=== PATIENT | female | born 1975 | race Caucasian/White ===

== ENCOUNTER → 2017-12-30 | Outpatient (CLI) | payer OTHER ==
--- NOTE | 2017-12-30 10:34 | MM ---
Reason for exam: screening (asymptomatic). Baseline mammogram. History: Took hormonal contraceptives beginning at age 32. Took progesterone for 4 months beginning at age 32. Physical Findings: Nurse did not find any significant physical abnormalities on exam. MG Screening Mammo w CAD Bilateral CC and MLO view(s) were taken. There are scattered fibroglandular densities. There is no discrete abnormality. A couple posterior upper outer quadrant intramammary lymph nodes on the right. These results were verbally communicated with the patient and result sheet given to the patient on 12/30/17. ASSESSMENT: Negative, BI-RAD 1 RECOMMENDATION: Routine screening mammogram of both breasts in 1 year.
== END | disposition home or self-care (01) ==
LOC: RADMAMWWP 09:18
PROVIDERS: ATTEND Family Medicine
DX: Z12.31 Encounter for screening mammogram for malignant neoplasm of breast (principal)
CPT/HCPCS: 77067

== ENCOUNTER → 2018-10-08 | Outpatient (CLI) | payer OTHER ==
--- NOTE | 2018-10-09 07:24 | US ---
EXAMINATION TYPE: US pelvic complete DATE OF EXAM: 10/08/2018 COMPARISON: NONE CLINICAL HISTORY: N83.209 Cyst of ovary, D25.9 Uterine leiomyoma per order. Patient states having his tory of fibroid and ovarian cyst x years ago. Slightly irregular periods. TECHNIQUE: Transabdominal (TA). Transabdominal sonographic images of the pelvis were acquired. Date of LMP: 09/12/2018, EXAM MEASUREMENTS: Uterus: 12.1 x 5.3 x 3.9 cm Endometrial Stripe: 1.0 cm Right Ovary: 4.4 x 4.6 x 3.0 cm Left Ovary: 3.1 x 1.8 x 1.4 cm 1. Uterus: Anteverted Heterogenous. Two lesions seen. 1- possible fibroid in right uterus with pe ripheral hyperechoic ring= 3.1 x 2.9 x 2.9 cm. 2- Pedunculated fibroid extending off mid/left fundal region= 11.5 x 10.8 x 9.0 cm 2. Endometrium: wnl 3. Right Ovary: simple cystic appearing lesion seen = 4.0 cm 4. Left Ovary: wnl 5. Bilateral Adnexa: wnl 6. Posterior cul-de-sac: no free fluid Transabdominal pelvic ultrasound shows heterogeneous anteverted uterus. Endometrium measures up to 10 mm which is within normal limits for secretory phase of menstrual cycle. Uterus is bulky with sugges tion of underlying fibroids, a rim calcified 3.1 cm fibroid is identified in the right myometrium on image 33. A large bulky exophytic or subserosal fibroid is suspected on image 26. No free fluid is se en in pelvic cul-de-sac. Both ovaries are seen, within right ovary there is 4.0 cm simple appearing thin-walled cyst noted on image 40. IMPRESSION: Heterogeneous uterus with underlying uterine fibroids confirmed, they can be better evalu ated and characterized with pelvic MRI if desired. Dominant lesion measures over 11 cm long axis. The re is 4.0 cm simple appearing thin-walled cyst right ovary noted.
== END | disposition home or self-care (01) ==
LOC: RADUSWWP 16:17
PROVIDERS: ATTEND Nurse Practitioner Family
DX: D25.9 Leiomyoma of uterus, unspecified (principal); N83.201 Unspecified ovarian cyst, right side
CPT/HCPCS: 76856